=== PATIENT | male | born 1980 | race Caucasian/White ===

== ENCOUNTER 2016-12-20 23:00 | Inpatient (IN) | payer OTHER ==
--- NOTE | ~2016-12-20 | PN ---
Unit #: [id number] #: [id number] Patient: CIERRA DOUGLAS [id number] [facility] [address] [place] [address] [id number] MR#: [id number] NAME: CIERRA DOUGLAS. ROOM: P177 Age: 36 Sex: M Admission Date: 12/21/2016 : 1980 Attending Physician: Mónica Grimaldo M.D. Admitting Physician: Mónica Grimaldo M.D. Primary Care Physician: Primary Care Physician Carri DILL PROGRESS NOTES DATE 12/23/2016 DISCUSSION Mr. Douglas is a 36-year-old, white male who was seen today and chart was reviewed and case was discussed with the staff. He has been anxious, withdrawn and rather seclusive to himself. Meanwhile, he appears to be coming out of the detox without any complications. He has been taking the medication and tolerating them fairly well with no reported side effects. MENTAL STATUS EXAM Young white male who was casually dressed with fair personal hygiene, appears to be in no acute distress or discomfort. He was awake and alert on interaction with intact orientation. His mood was anxious with congruent affect. His speech was slow and goal directed. He denies any suicidal or homicidal ideation. Also, denies any auditory or visual hallucinations. His insight and judgement remains slightly impaired. TREATMENT PLAN 1. We will continue him on his current medications and treatment protocol. We will monitor his response to the medication and make further adjustments as needed. 2. We will continue to follow up. Dictated by... Radha Lopes/tomeka TD: 12/24/2016 00:22 JOB #: [id number] Unit #: [id number] #: [id number] Patient: CIERRA DOUGLAS FUENTES PROGRESS NOTES Page 1 of 1 X Mónica Grimaldo MD PROGRESS NOTE
--- NOTE | ~2016-12-20 | PA ---
Unit #: [id number] #: [id number] Patient: CIERRA DOUGLAS [id number] [facility] [address] [place] [address] [id number] I MR#: [id number] NAME: CIERRA DOUGLAS. ROOM: P177 Age: 36 Sex: M Admission Date: 12/21/2016 : 1980 Date of Assessment: Attending Physician: Mónica Grimaldo M.D. Admitting Physician: Mónica Grimaldo M.D. PSYCHIATRIC ASSESSMENT DATE OF SERVICE 12/21/2016. IDENTIFYING DATA Mr. Douglas is a 36-year-old white male, who is a resident of [place], [place], and was self-referred to the hospital on a voluntary basis. CHIEF COMPLAINT "My drug use is out of control." HISTORY OF PRESENT ILLNESS Mr. Douglas is a 36-year-old white male with history of substance abuse and dependence, who was self-referred to the hospital reporting that his drug use is out of control, "I don't want to wake up anymore. I'm using about 2 g a day. I'm tired of getting up and chasing drugs all day if I have to live like this. I want to . 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 He does report increasing depression, anxiety, poor energy level, psychomotor retardation, feelings of hopelessness and helplessness, and suicidal ideation. He reports that he has been having suicidal thoughts with a plan to overdose on heroin; however, he denies any homicidal ideations. SUBSTANCE ABUSE HISTORY The patient reports extensive history of substance abuse and dependence including cannabis, cocaine, acid, opioids, amphetamines, and benzodiazepines, and currently, heroin has been his drug of choice as he reports that he has been using 1 to 2 g of heroin on a daily basis via IV route. PAST PSYCHIATRIC HISTORY The patient has had a history of inpatient chemical dependency treatment at [facility] and other facilities, and review of the medical records indicate currently he is not active in any treatment program and is not seeing a psychiatrist. PAST MEDICAL HISTORY Unit #: [id number] #: [id number] Patient: CIERRA DOUGLAS The patient's medical history is significant for withdrawal seizures. ALLERGIES No known medication allergies. PERSONAL AND SOCIAL HISTORY A 36-year-old white male, who reports that he is single, unemployed, and lives with his zxdccuu-ld-giy and has fairly decent social support system. MENTAL STATUS EXAMINATION Young white male, who was casually dressed with a fair personal hygiene, appears to be in no acute distress or discomfort. He was awake and alert on interaction with intact orientation to time, place, and person. His mood was anxious and depressed with a congruent affect. His speech was slow and restricted in content. His thought processes were disorganized with some looseness of associations and suicidal ideations. His insight and judgment remain significantly impaired. DIAGNOSTIC IMPRESSION Psychiatric: Major depressive disorder, recurrent, moderate, without psychotic features and opioid dependence, moderate, in acute withdrawals. Medical: Chronic pain. Stressors: Moderate psychosocial stressors. TREATMENT PLAN 1. The patient has presented with a history of substance abuse and mood disorder and has been decompensating and will need inpatient hospitalization for safety and stabilization. We will start him back on his home medications, and we will adjust the medications and monitor response. 2. Supportive therapy was provided to the patient. 3. Safe, structured, and nourishing environment will be provided. ESTIMATED LENGTH OF STAY 5 to 7 days. ABILITY TO HELP SELF Limited. WILLINGNESS TO HELP SELF The patient appears to be willing to help self. STRENGTHS 1. Communicative. 2. Cooperative. PROBLEMS 1. Chronic dysphoric symptoms. 2. Poor social support system. DISCHARGE CRITERIA This will be contingent upon the patient's ability to show resolution of his depression and anxiety and his ability to stay safe to himself, particularly after discharge from the hospital. Dictated by... Mónica Grimaldo M.D. Unit #: [id number] #: [id number] Patient: CIERRA DOUGLAS Lui IAA/modl TD: 12/21/2016 15:30 JOB #: [id number] PSYCHIATRIC ASSESSMENT Page 1 of 1 X Mónica Grimaldo MD PSYCHIATRIC ASSESSMENT
--- NOTE | ~2016-12-20 | HP ---
Unit #: [id number] #: [id number] Patient: CIERRA DOUGLAS [id number] [place] [address] [id number] MR#: [id number] NAME: CIERRA DOUGLAS. ROOM: [facility] Age: 36 Sex: M Admission Date: 12/21/2016 : 1980 Attending Physician: Mónica Grimaldo M.D. Admitting Physician: Mónica Grimaldo M.D. Primary Care Physician: Primary Care Physician No HISTORY AND PHYSICAL HISTORY OF PRESENT ILLNESS The patient is a 36-year-old male admitted to [facility] on 12/21/2016 for drug abuse. PAST MEDICAL HISTORY 1. Seizures 2. Cervical fracture 3. Hypertension PAST SURGICAL HISTORY 1. Neck surgery 2. Tonsils and adenoids SOCIAL HISTORY The patient does maintenance work for a living. He lives with his feyzpfy-qq-zje. He smokes two packs of cigarettes daily and has a history of polysubstance abuse which includes heroin, methamphetamines and benzodiazepines. FAMILY MEDICAL HISTORY Noncontributory. ALLERGIES No known drug allergies. CURRENT MEDICATIONS 1. Lyrica 2. Hydrocodone 3. Nortriptyline REVIEW OF SYSTEMS CONSTITUTIONAL: No fever or chills. HEENT: Denies any sore throat, ear pain or runny nose. CARDIOVASCULAR: Denies chest pain, irregular heart rhythm or palpitations. CHEST: Denies shortness of breath or cough. No hemoptysis. GASTROINTESTINAL: Denies nausea, vomiting, diarrhea or chronic constipation. ENDOCRINE: Denies history of increased thirst or urination. No recent significant weight loss or gain. GENITOURINARY: Denies dysuria, frequency, or hematuria. SKIN: Denies any rashes. HEMATOLOGIC: Denies history of increased bleeding or bruising. MUSCULOSKELETAL: Denies any hot, swollen joints. No generalized muscle Unit #: [id number] #: [id number] Patient: CIERRA DOUGLAS pain. NEUROLOGIC: Denies problems with vision or speech. No frequent, severe headaches. No numbness, tingling or weakness in any extremities. Denies loss of bladder or bowel control. PHYSICAL EXAM GENERAL: He is awake, alert and oriented in no acute distress. VITAL SIGNS: Temperature 98.9, heart rate 68, respiration 16, blood pressure 100/62. HEIGHT: 5'10". WEIGHT: 180 pounds. SKIN: Warm and dry without rash or lesion. HEENT: Normocephalic. TMs not viewed. Oral and nasal passages clear. Conjunctivae clear. PERRLA. EOMs intact. NECK: Supple without lymphadenopathy or thyromegaly. HEART: Regular rate and rhythm without murmur. LUNGS: Clear. ABDOMEN: Soft, nontender. : Not done. EXTREMITIES: No evidence of cyanosis, clubbing or edema. Moves all without focal deficit. NEUROLOGICAL: Grossly within normal limits. Cranial Nerves: II: Visual paz are intact. III, IV AND : Extraocular movements are intact. Pupils are equal, round and reactive to light. V: Facial sensation is grossly normal. VII: Facial movements and expression are normal. VIII: Auditory acuity grossly intact. IX, X: Uvula is midline. Phonation is normal. XI: Patient shrugs shoulders and turns head normally. XII: Tongue protrudes in the midline. Sensory and Motor Function: Sensory and motor sensation is grossly normal. Motor: moves all extremities well. IMPRESSION 1. Psychiatric admission. 2. Polysubstance abuse. 3. Seizures. 4. Cervical fracture. 5. Hypertension. 6. Nicotine dependence. RECOMMENDATIONS Psychiatric per psychiatrist. MEDICAL: No contraindication to participate in facility activities. MEDICAL PROGNOSIS Good. MEDICAL CONDITION Stable. Dictated by... Unit #: [id number] #: [id number] Patient: CIERRA DOUGLAS A.P.R.N. EF/tomeka TD: 12/22/2016 03:37 JOB #: [id number] HISTORY AND PHYSICAL Page 1 of 1 X SANTOS CHOU APRN HISTORY AND PHYSICAL
--- NOTE | ~2016-12-20 | PN ---
Unit #: [id number] #: [id number] Patient: CIERRA DOUGLAS [id number] [facility] [address] [place] [address] [id number] MR#: [id number] NAME: CIERRA DOUGLAS. ROOM: 77 Age: 36 Sex: M Admission Date: 12/21/2016 : 1980 Attending Physician: Mónica Grimaldo M.D. Admitting Physician: Mónica Grimaldo M.D. Primary Care Physician: Primary Care Physician Carri DILL PROGRESS NOTES DATE December 22, 2016 DISCUSSION Mr. Douglas is a 36-year-old white male, who was seen today and chart was reviewed and the case was discussed with the staff. He has been anxious, withdrawn, and seclusive to himself. Meanwhile, he has been cooperative with the treatment recommendations and he has been taking the medications and tolerating them fairly well. MENTAL STATUS EXAMINATION Young white male, who was casually dressed with fair personal hygiene and appears to be in no acute distress or discomfort. He was awake and alert on interaction with intact orientation. His mood is anxious with a congruent affect. His speech is slow and goal-directed. He denies any suicidal or homicidal ideations. His insight and judgment remain slightly impaired. TREATMENT PLAN 1. We will continue him on his current treatment protocol, and will monitor his response to the medications, and make further adjustments as needed. 2. We will continue to followup. Dictated by... Radha Lopes/kenya TD: 12/23/2016 12:59 JOB #: [id number] Unit #: [id number] #: [id number] Patient: CIERRA DOUGLAS FUENTES PROGRESS NOTES Page 1 of 1 X Mónica Grimaldo MD PROGRESS NOTE
--- NOTE | ~2016-12-20 | DS ---
Unit #: [id number] #: [id number] Patient: [facility]ERRA DOUGLAS [id number] [facility] [address] [place] [address] [id number] MR#: [id number] NAME: CIERRA DOUGLAS. ROOM: 77 Age: 36 Sex: M Admission Date: 12/21/2016 : 1980 Discharge Date: 12/24/2016 Attending Physician: Mónica Grimaldo M.D. Primary Care Physician: Primary Care Physician No DISCHARGE SUMMARY IDENTIFYING DATA Mr. Douglas is a 36-year-old white male who was self-referred to the hospital. DISCHARGE DIAGNOSES Psychiatric: Opioid dependence, moderate and acute withdrawals; opioid-induced mood disorder. Medical: Hypertension, seizure disorder. Stressors: Moderate psychosocial stressors. HISTORY OF PRESENT ILLNESS Please see initial psychiatric evaluation for details. PAST PSYCHIATRIC HISTORY Please see initial psychiatric evaluation for details. PAST MEDICAL HISTORY Please see initial psychiatric evaluation for details. HOSPITAL COURSE The patient was admitted to the adult chemical dependency unit at [facility] and was oriented to the hospital environment. Routine p.r.n. medications were initiated and he was started on the detox protocol and was closely monitored. He was taking the medications regularly and was tolerating them fairly well and was able to show a decent therapeutic response and was willing to continue treatment on an outpatient basis, and as such, it was decided that he will be discharged home and will continue treatment on an outpatient basis. DISCHARGE CONDITION Stable. PROGNOSIS Fair. Dictated by... Radha Lopes/ky TD: 01/06/2017 23:03 JOB #: [id number] Unit #: [id number] #: [id number] Patient: CIERRA DOUGLAS DISCHARGE SUMMARY Page 1 of 1 X Mónica Grimaldo MD X DISCHARGE SUMMARY
[2016-12-23 12:36] LABS: URINE APPEARANCE CLEAR; URINE BILIRUBIN NEG (NEG); URINE BLOOD NEG (NEG); URINE COLOR YELLOW; URINE GLUCOSE NEG (NEG); URINE KETONE NEG (NEG); URINE LEUKOCYTE ESTERASE NEG (NEG); URINE NITRATE NEG (NEG); URINE PH 6.5 (5-8); URINE PROTEIN NEG (NEG); URINE SPECIFIC GRAVITY 1.016 (1.003-1.035); URINE UROBILINOGEN 0.2 MG/DL (NEG)
[2016-12-23 13:06] LABS: AMPHETAMINE POS (NEG); BARBITURATES NEG (NEG); BENZODIAZEPINES NEG (NEG); COCAINE NEG (NEG); MARIJUANA NEG (NEG); OPIATES POS (NEG); TRICYCLIC ANTIDEPRESSANTS POS (NEG); U METHADONE NEG (NEG)
== END 2016-12-24 08:50 | DRG 885 ==
LOC: P1E 12-21 01:40
PROVIDERS: Psychiatry & Neurology Psychiatry
PROC: HZ2ZZZZ Detoxification Services for Substance Abuse Treatment (ICD-10-PCS; principal; 2016-12-21)
DX: F33.1 Major depressive disorder, recurrent, moderate (principal); F11.23 Opioid dependence with withdrawal; G89.29 Other chronic pain
CPT/HCPCS: 80307; 81003